=== PATIENT | male | born 1960 | race Caucasian/White ===

== ENCOUNTER 2021-03-22 21:39 | Emergency (ER) | payer MEDICARE, OTHER ==
[~2021-03-22 21:39] MED LIST: ADVAIR 250-501 EACH INH; AMITIZA8 MCG PO; COLESTID 1GM TAB1 GM PO; COMBIVENT RESPIM4 GM INH; CREON DR 24,001 EACH PO; DALIRESP500 MCG PO; FUROSEMIDE 40MG40 MG PO; GLUCOPHAGE850 MG PO; HUMALOG JU100 UNIT/1 SC; HUMALOG100 UNIT/3 SC; HYDROCODONE-APA1 TAB PO; K-DUR20 MEQ PO; LASIX20 MG PO; LASIX40 MG PO; LEVEMIR FL100 UNIT/1 SC; LEVEMIR VI100 UNITS/ SC; LIPITOR 10MG TA10 MG PO; LOPID600 MG PO; LOVAZA1 GM PO; LUBRICANT EYE15 M1 EYEBOTH; MEDROL 4MG DOSEP4 MG PO; MICRO-K10 MEQ PO; MORPHINE SULFAT15 M1 PO; MORPHINE SULFAT15 MG PO; NORCO 7.5-3251 EACH PO; OXYGEN; PHENERGAN25 M1 PO; PRILOSEC20 MG PO; PRINIVIL10 MG PO; PROMETHEGA12.5 MG/SU PR; TOPROL XL 25MG25 MG PO; TOPROL XL25 MG PO; TRELEGY ELLIPT1 EACH INH; VIBRAMYCIN100 MG PO; VITAMIN D3 PO; ZEGERID 40 MG1 EACH PO; ZEGERID OTC 201 EACH PO; ZESTRIL2.5 MG PO
[2021-03-23 00:14] LABS: BASOPHIL 0.2 % (0-2); EOSINOPHIL 0 % (0-5); HCT 48.1 % (42.0-52.0); LYMPHOCYTE 5.8 % (15-48); MCH 31.2 pg (25.0-31.0); MCHC 33.3 g/dL (32.0-36.0); MCV 93.8 fL (78.0-100.0); MONOCYTE 3.8 % (0-12); MPV 11.3 fL (6.0-9.5); NEUTROPHIL 89.9 % (41-80); NRBC 0; PLT 181 K/uL (150-400); RBC 5.13 M/uL (4.70-6.00); RDW 12.5 % (11.5-14.0); WBC 17.5 K/uL (4.0-10.5)
[2021-03-23 00:47] LABS: BILIRUBIN - TOTAL 0.7 mg/dL (0.2-1.0); BUN/CREAT RATIO (CALC) 17.9 RATIO; CREATININE 0.67 mg/dL (0.67-1.17); GLOBULIN (CALCULATION) 3.8 g/dL; TOTAL PROTEIN 7.8 g/dL (6.4-8.2)
[2021-03-23 01:38] LABS: LACTIC ACID 4.8 mmol/L (0.4-1.9)
== END 2021-03-23 07:25 | disposition home or self-care (01) ==
LOC: FER 21:39
PROVIDERS: Emergency Medicine Emergency Medical Services
DX: K86.1 Other chronic pancreatitis (principal); E11.9 Type 2 diabetes mellitus without complications; J44.9 Chronic obstructive pulmonary disease, unspecified; Z88.1 Allergy status to other antibiotic agents
CPT/HCPCS: 36415; 80053; 83605; 83690; 84145; 85025; C9113; J1170; J1885; J2405; J2550; J7030; Q9967

== ENCOUNTER 2021-03-25 08:22 | Day surgery (SDCO) | payer MEDICARE, OTHER ==
[~2021-03-25] VITALS: Ht 175.3 cm; Wt 120.9 kg
[2021-03-25 10:43] LABS: BASOPHIL 0.2 % (0-2); EOSINOPHIL 0 % (0-5); HCT 43.9 % (42.0-52.0); HGB 14.7 g/dl (13.2-18.0); LYMPHOCYTE 8.1 % (15-48); MCH 31.1 pg (25.0-31.0); MCHC 33.5 g/dL (32.0-36.0); MCV 92.8 fL (78.0-100.0); MONOCYTE 2.9 % (0-12); MPV 10.8 fL (6.0-9.5); NEUTROPHIL 87.7 % (41-80); NRBC 0; PLT 191 K/uL (150-400); RBC 4.73 M/uL (4.70-6.00); RDW 12.5 % (11.5-14.0)
[2021-03-25 11:12] LABS: BILIRUBIN NEGATIVE (NEGATIVE); BLOOD NEGATIVE Ery/uL (NEGATIVE); CLARITY CLEAR (CLEAR); COLOR YELLOW (YELLOW); GLUCOSE (U) 2+ mg/dL (NORMAL); LEUKOCYTES NEGATIVE Leu/uL (NEGATIVE); NITRITE NEGATIVE (NEGATIVE); PROTEIN NEGATIVE (NEGATIVE); SPECIFIC GRAVITY >=1.030 (1.001-1.030); UROBILINOGEN 0.2 mg/dL (0.2-1.0); pH 5.5 (5.0-9.0)
[2021-03-25 11:34] LABS: CORONAVIRUS 2019 SARS-COV-2 NEGATIVE (NEGATIVE); INFLUENZA A NAA NEGATIVE (NEGATIVE)
[2021-03-25 11:35] LABS: ALBUMIN 3.5 g/dL (3.4-5.0); BILIRUBIN - TOTAL 0.8 mg/dL (0.2-1.0); BUN/CREAT RATIO (CALC) 18.3 RATIO; CREATININE 0.6 mg/dL (0.67-1.17); GLOBULIN (CALCULATION) 3.4 g/dL; POTASSIUM 3.9 mmol/L (3.5-5.1); TOTAL PROTEIN 6.9 g/dL (6.4-8.2)
[2021-03-26] MEDS ORDERED: TRELEGY ELIPTA INH (04:34)
[2021-03-26] MEDS ORDERED: HUMULIN R500 UNIT/2 SC (04:36)
[2021-03-26 06:37] LABS: BASOPHIL 0.2 % (0-2); EOSINOPHIL 0.5 % (0-5); HCT 38.9 % (42.0-52.0); HGB 13.1 g/dl (13.2-18.0); LYMPHOCYTE 25.6 % (15-48); MCH 31.3 pg (25.0-31.0); MCHC 33.7 g/dL (32.0-36.0); MCV 93.1 fL (78.0-100.0); MONOCYTE 6.1 % (0-12); MPV 9.9 fL (6.0-9.5); NEUTROPHIL 67.3 % (41-80); NRBC 0; PLT 207 K/uL (150-400); RBC 4.18 M/uL (4.70-6.00); RDW 12.6 % (11.5-14.0); WBC 10.4 K/uL (4.0-10.5)
[2021-03-26 06:55] LABS: BILIRUBIN - TOTAL 0.6 mg/dL (0.2-1.0); BUN/CREAT RATIO (CALC) 15.2 RATIO; CREATININE 0.66 mg/dL (0.67-1.17); GLOBULIN (CALCULATION) 2.9 g/dL; MAGNESIUM 2.3 mg/dL (1.8-2.4); POTASSIUM 3.8 mmol/L (3.5-5.1); TOTAL PROTEIN 5.9 g/dL (6.4-8.2)
== END 2021-03-27 11:54 | disposition home or self-care (01) ==
LOC: FER 08:22 → FOFB 18:23 → FMS 18:23 → FOFB 22:40 → FMS 03-26 18:16
PROVIDERS: Emergency Medicine; ADMIT Internal Medicine
DX: R11.2 Nausea with vomiting, unspecified (principal); K86.1 Other chronic pancreatitis; E11.9 Type 2 diabetes mellitus without complications; J44.9 Chronic obstructive pulmonary disease, unspecified; I10 Essential (primary) hypertension; E66.01 Morbid (severe) obesity due to excess calories; E78.5 Hyperlipidemia, unspecified; G47.33 Obstructive sleep apnea (adult) (pediatric); F10.10 Alcohol abuse, uncomplicated; Z68.41 Body mass index [BMI] 40.0-44.9, adult; Z87.891 Personal history of nicotine dependence; Z79.4 Long term (current) use of insulin; Z79.891 Long term (current) use of opiate analgesic; Z79.899 Other long term (current) drug therapy; Z20.822 Contact with and (suspected) exposure to COVID-19
CPT/HCPCS: 36415; 80053; 81003; 82962; 83036; 83690; 83735; 85025; C9113; G0378; J1170; J1650; J2270; J2405; J7030; J7120; U0002